=== PATIENT | female | born 2000 | race Hispanic/Latino ===

== ENCOUNTER 2021-09-01 19:09 | Outpatient (CLI) | payer OTHER ==
[2021-09-01 19:45] VITALS: BP 131/79
[2021-09-01] MEDS ORDERED: LACTATED RINGERS 500 ML IV ONE (20:52)
[2021-09-01 22:13] LABS: Bacteria,Urine 1+ /HPF (Negative); Bilirubin,Urine NEG (Negative); Blood,Urine MOD (Negative); Color,Urine Yellow (Yellow); Mucus,Urine FEW /HPF; Protein,Urine <15 mg/dL mg/dL (Negative); Urobilinogen,Urine < 2.0 mg/dL (<2.0)
== END 2021-09-01 22:52 | disposition home or self-care (01) ==
LOC: TRG 19:09 → APU 19:10 → TRG 22:52
PROVIDERS: ATTEND Obstetrics & Gynecology
DX: O42.913 Preterm premature rupture of membranes, unspecified as to length of time between rupture and onset of labor, third trimester (principal); Z3A.36 36 weeks gestation of pregnancy
CPT/HCPCS: 59025; 81001; 96360

== ENCOUNTER 2021-09-10 18:05 | Outpatient (CLI) | payer OTHER ==
[2021-09-10] MEDS ORDERED: LACTATED RINGERS 1,000 ML IV ONE (18:34)
[2021-09-10 19:36] LABS: Bilirubin,Urine NEG (Negative); Blood,Urine NEG (Negative); Color,Urine Straw (Yellow); Protein,Urine <15 mg/dL mg/dL (Negative); RBC,Urine < 1.0 /HPF (0.0-6.0); Urobilinogen,Urine < 2.0 mg/dL (<2.0); WBC,Urine < 1.0 /HPF (0.0-6.0)
[2021-09-10 19:40] LABS: Hematocrit 29.1 % (30.3-42.9); Hemoglobin 8.9 gm/dl (10.1-14.3); Mean Corpuscular HGB Conc 31 % (30-34); Mean Corpuscular Volume 81 fl (79-97); Platelet Count 295 K/mm3 (140-440); Red Blood Count 3.57 M/mm3 (3.65-5.03); Red Cell Distribution Width 15.8 % (13.2-15.2)
[2021-09-10 19:58] LABS: Alanine Aminotransferase 9 units/L (7-56)
[2021-09-10 20:29] VITALS: BP 125/74
--- NOTE | 2021-09-10 20:34 | Event Note ---
Date: 09/10/21 Pt is a 21 y.o. @ 37.2 wks. She was sent from the office d/t blood pressures being 140's/80's with vision changes. Of note she was also seen on 09/09/2021 for the same complaint. A pre eclampsia work up was also ordered which resulted in normal labs and blood pressure ranges 120's-130's/60-80's. During triage visit today she endorsed vision changes but denied chest pain, shortness of breath, GARNETT, and upper abdominal pain. Pt states that she has had blurred vision for a few weeks and recently had an eye exam and received a new prescription for contacts. Consulted with Dr. Remy. Labs were were drawn and patient had serial blood pressures. Her labs during triage visit today were WNL and her blood pressure ranges were 114-137/60-80's. She was also found to have some tachycardia with pulse ranges from 90-130's. Pt denies feeling heart palpitations. She was found to be anemic with an H/H 8.9/29.1, and continued to deny chest pain, shortness of breath, upper abdominal pain, feeling lightheaded or dizzy. She also denied vaginal bleeding, LOF, ctxs. Category 1 monitor strip noted throughout triage visit. Discussed with patient the need to collect a 24 hour urine and how to collect. Pt wishes to do this at home. She was provided the specimen collection and container. Pt states that she has an appointment scheduled for next week on . We discussed the need to follow up sooner in the office. She will call the office on 09/11 and make an appointment on Tuesday, 09/15, for follow up. She will also bring in her 24 hour urine collection and have labs drawn. She was given a prescription for iron supplementation. Pt states that iron supplementation makes her sick to her stomach so she was also provided a prescription for Zofran to take 30minutes before taking iron supplementation. She is also aware of how to take iron supplementation. Pt is to call the reproduction specialist provider and come to triage if she experiences worsening blurred, GARNETT, spots before her eyes, chest pain, shortness of breath, upper abdominal pain, vaginal bleeding, LOF, ctxs, or decreased movement. Pt verbalized understanding of all instructions and was discharged home in in good condition.
[2021-09-10 20:35] LABS: Creatinine,Urine 28.8 mg/dL (0.1-20.0); Protein/Creatinine Ratio,Urine 0.24
== END 2021-09-10 20:51 | disposition home or self-care (01) ==
LOC: TRG 18:05 → APU 18:09 → TRG 20:51
PROVIDERS: ATTEND Obstetrics & Gynecology
DX: O13.3 Gestational [pregnancy-induced] hypertension without significant proteinuria, third trimester (principal); Z3A.37 37 weeks gestation of pregnancy
CPT/HCPCS: 36415; 81001; 82565; 82570; 83615; 84156; 84450; 84460; 84550; 85027